=== PATIENT | male | born 1975 | race Caucasian/White ===

== ENCOUNTER 2016-04-22 15:19 | Emergency (ER) | payer BC, OTHER ==
[2016-04-22 15:28] VITALS: BP 135/90
--- NOTE | 2016-04-22 15:42 | ERNOTE ---
Medical Problem HPI - Narrative Date of Service: 04/22/16 - General Chief Complaint: Nausea/Vomiting Time Seen by Provider: 04/22/16 15:25 Source: patient Exam Limitations: no limitations - Immun/Allergies/Home Medications Immunizations: IMMUNIZATION HX Immunizations Up to Date Yes History of Influenza Vaccine No Hx Pneumococcal Vaccination No Allergies/Adverse Reactions: Allergies No Known Allergies Allergy (Verified 04/22/16 15:28) Home Medications: HOME MEDICATIONS NK [No Home Medication] 04/22/16 [Last Taken Unknown] - History of Present History Narrative: Pt here for an improving runny nose and diarrhea that is also improving. Timing: other - improving Severity: mild Review of Systems - Review of Systems Constitutional: Present: See HPI EYE: Present: see HPI ENT: Present: no symptoms reported Respiratory: Present: no symptoms reported Cardiology: Present: no symptoms reported Gastrointestinal/Abdominal: Present: diarrhea Genitourinary: Present: no symptoms reported Musculoskeletal: Present: no symptoms reported Skin: Present: no symptoms reported Neurological: Present: no symptoms reported Endocrine: Present: no symptoms reported Hematologic/Lymphatic: Present: no symptoms reported Psych: Present: no symptoms reported - Patient's Past Medical History Patient History - Medical: GERD Patient History - Cardiac/Respiratory: No pertinent hx Patient History - Cancer: No Hx of Cancer Patient History - Surgical Procedures: Ear Tubes, T & A Patient History - Other: None - Social History Living Situations: home Abuse History: No History of abuse Psych History: No pertinent hx Smoking Status: Former smoker Have you smoked in the past 12 months: No Alcohol Use: none Drug Use: none - Immunizations Immunizations Up to Date: Yes Hx Pneumococcal Vaccination: No History of Influenza Vaccine: No Physical Exam - Physical Exam General Appearance: Present: wd/wn, alert, no apparent distress Eye Exam: Normal inspection: bilateral, PERRL: bilateral Ears, Nose, Throat: Present: hearing grossly normal, nasal congestion, normal pharynx Neck: Present: normal inspection, nontender Respiratory: Present: no respiratory distress, normal breath sounds, no accessory muscle use, chest nontender, lungs clear Cardiovascular/Chest: Present: regular rate, rhythm, no murmur, normal peripheral pulses Gastrointestinal/Abdominal: Present: normal bowel sounds, nontender, nondistended, soft, no organomegaly Rectal Exam: Present: deferred Back Exam: Present: normal inspection, normal range of motion Extremity Exam: Present: normal inspection, non-tender, no edema, normal range of motion Neurological Exam: Present: alert, oriented, normal mood/affect Skin Exam: Present: normal color, warm/dry Lymphatic Exam: Present: no adenopathy ED Progress - Vital Signs Patient's Vital Signs:: I have reviewed the patient's vital signs. Vital Signs: Vital Signs 04/22/16 15:26 Temperature 35.8 C L Pulse Rate 69 Respiratory 14 Rate Blood Pressure 135/90 O2 Sat by Pulse 98 Oximetry - Progress/Reassessment Chief Complaint: Nausea/Vomiting Progress:: Unchanged - Transfer of Care Expected Disposition: Discharge Plan - Plan Plan: Pt's symptoms improving and he appears safe to return to work. Departure - Departure Clinical Impression: Viral syndrome Disposition: Home self-care Condition: Good
== END 2016-04-22 15:45 | disposition home or self-care (01) ==
LOC: ER 15:19
DX: B34.9 Viral infection, unspecified (principal)